=== PATIENT | female | born 1945 | race Caucasian/White ===

== ENCOUNTER 2017-06-24 12:36 | Emergency (ER) | payer MEDICARE, OTHER ==
[~2017-06-24] VITALS: Ht 172.7 cm; Wt 76.4 kg
[2017-06-24] MEDS ORDERED: OMEP20CA3 (12:51)
[2017-06-24] MEDS ORDERED: AMLO2.5T (12:51)
[2017-06-24] MEDS ORDERED: ASPIRIN 81 MG CHEW TABLET PO ONE (13:45)
[2017-06-24 14:02] LABS: BASO % 0.5 % (0.0-1.0); EOS # 0.1 K/mm3 (0.0-0.50); EOS % 2.1 % (0.0-3.0); LARGE UNSTAINED CELL # 0.2 K/mm3 (0.0-0.4); LARGE UNSTAINED CELL % 5.2 % (0.0-4.0); LYMPH # 1.1 K/mm3 (1.5-4.5); LYMPH % 23.9 % (24.0-44.0); MEAN CORPUSCULAR HEMOGLOBIN 32.6 pg (27.0-33.0); MEAN CORPUSCULAR HGB CONC 34.7 g/dl (32.0-36.5); MEAN CORPUSCULAR VOLUME 93.8 fl (80.0-96.0); MONO # 0.5 K/mm3 (0.0-0.8); MONO % 12.8 % (0.0-5.0); NEUTROPHILS # 2.1 K/mm3 (1.8-7.7); NEUTROPHILS % 55.5 % (36.0-66.0); PLATELET COUNT, AUTOMATED 212 k/mm3 (150-450); RED CELL DISTRIBUTION WIDTH 12.4 % (11.5-14.5); WHITE BLOOD COUNT 3.7 K/mm3 (4.0-10.0)
[2017-06-24 14:04] LABS: INR 0.92
[2017-06-24 14:29] LABS: ALBUMIN 3.4 GM/DL (3.2-5.2); ALBUMIN/GLOBULIN RATIO 0.94 (1.00-1.93); ALKALINE PHOSPHATASE 89 U/L (45-117); ALT/SGPT 33 U/L (12-78); ANION GAP 7 MEQ/L (8-16); AST/SGOT 19 U/L (15-37); BILIRUBIN,DIRECT 0.2 MG/DL (0.0-0.2); BILIRUBIN,TOTAL 0.7 MG/DL (0.2-1.0); BLOOD UREA NITROGEN 11 MG/DL (7-18); CALCIUM LEVEL 9.3 MG/DL (8.8-10.2); CARBON DIOXIDE LEVEL 30 MEQ/L (21-32); CHLORIDE LEVEL 105 MEQ/L (98-107); CREATININE FOR GFR 0.64 MG/DL (0.55-1.02); GLOMERULAR FILTRATION RATE > 60.0 (>39); GLUCOSE, FASTING 91 MG/DL (83-110); POTASSIUM SERUM 3.9 MEQ/L (3.5-5.1); SODIUM LEVEL 142 MEQ/L (136-145)
--- NOTE | 2017-06-24 15:03 | REP ---
PORTABLE CHEST: AP portable view of the chest is performed. There is no acute infiltrate. The heart is normal in size and the mediastinal silhouette is unremarkable. IMPRESSION: No acute infiltrate. Signed by Rd Coon MD 06/25/2017 05:52 P
[2017-06-24] MEDS ORDERED: MORPHINE 2 MG/ML 1ML SYRINGE IV ONE (15:15)
[2017-06-24] MEDS ORDERED: NS 1,000 ML IV SCH (15:30)
[2017-06-24] MEDS ORDERED: AMLO2.5T PO (16:12)
[2017-06-24] MEDS ORDERED: VITA10002 PO (16:12)
[2017-06-24] MEDS ORDERED: CALC600T31 PO (16:12)
[2017-06-24] MEDS ORDERED: OMEP20CA3 PO (16:12)
[2017-06-24] MEDS ORDERED: IBUPROFEN 600 MG TAB PO ONE (16:15)
[2017-06-24] MEDS ORDERED: ELIQ5TAB PO ×2 (16:19→16:49)
[2017-06-24] MEDS ORDERED: APIXABAN 5 MG TAB (ELIQUIS) PO ONE (16:30)
[2017-06-24 17:06] VITALS: BP 145/73
--- NOTE | 2017-06-25 11:17 | ECGEPIP ---
Stationary ECG Study [facility] - ED Test Date: 2017-06-24 Pat Name: MIGUEL MIX Department: Room: - Gender: F [employer] Supervisor: alfred : 1945 Requested By: Anderson Sidhu Order Number: [id number] Reading MD: Char Hernandez Measurements Intervals [place] Rate: 58 P: 74 CA: 197 QRS: 16 QRSD: 89 T: 29 QT: 396 QTc: 391 Interpretive Statements SINUS BRADYCARDIA WITH OCCASIONAL SUPRAVENTRICULAR PREMATURE COMPLEXES MODERATE VOLTAGE CRITERIA FOR LVH, CONSIDER NORMAL VARIANT NO PRIOR FOR COMPARISON Electronically Signed On 06-25-2017 11:17:44 EDT by Char Hernandez
== END 2017-06-24 17:05 | disposition home or self-care (01) ==
LOC: M ED 12:36
DX: R07.9 Chest pain, unspecified (principal); I10 Essential (primary) hypertension; K21.9 Gastro-esophageal reflux disease without esophagitis; Z79.899 Other long term (current) drug therapy

== ENCOUNTER → 2017-06-24 | Outpatient (REF) | payer MEDICARE, OTHER ==
[~2017-06-24] MED LIST: AMLO2.5T; AMLO2.5T PO; CALC600T31 PO; ELIQ5TAB PO; OMEP20CA3; OMEP20CA3 PO; VITA10002 PO
[2017-06-24 13:17] LABS: MYOGLOBIN 51 NG/ML (13-71)
== END ==
LOC: M LAB REF 12:47
PROVIDERS: ATTEND Nurse Practitioner Adult Health
DX: R07.9 Chest pain, unspecified (principal)

== ENCOUNTER 2017-07-17 11:28 | Day surgery (SDC) | payer MEDICARE, OTHER ==
[~2017-07-17] VITALS: Ht 171.4 cm; Wt 73.8 kg
[~2017-07-17 11:28] MED LIST changes: +ISOVUE-300 61% 50ML VIAL (Q9967) As Ordered ONE; +LIDOCAINE 1% SDV INJ 30 ML VIAL As Ordered ONE; +MUPIROCIN 2% OINT 22 GM TUBE As Ordered ONE; +VANCOMYCIN 1000 MG/20 ML VIAL (J3370) As Ordered ONE
[2017-07-17] MEDS ORDERED: LACTATED RINGER'S 1000 ML IV ONE (12:00)
[2017-07-17] MEDS ORDERED: ceFAZolin SOD 1 GM in D5W MINI-BAG PLUS 50 ML IV ONE (12:00)
[2017-07-17] MEDS ORDERED: LR 1,000 ML IV ONE (12:00)
[2017-07-17] MEDS ORDERED: fentaNYL 100 MCG/2 ML INJECTION (J3010) As Ordered ONE (13:18)
[2017-07-17] MEDS ORDERED: MIDAZOLAM INJ 2 MG/2 ML VIAL (J2250) As Ordered ONE (13:18)
[2017-07-17] MEDS ORDERED: LIDOCAINE 2% INJ 100 MG/5 ML SDV (FOR ANES.) As Ordered ONE (13:18)
[2017-07-17] MEDS ORDERED: PROPOFOL 200 MG/20 ML VIAL As Ordered ONE (13:18)
[2017-07-17] MEDS ORDERED: ePHEDrine SULFATE 25 MG/5 ML(5MG/ML) SYRINGE As Ordered ONE (13:28)
[2017-07-17] MEDS ORDERED: ONDANSETRON 4MG/2ML VIAL (J2405) As Ordered ONE (14:15)
--- NOTE | 2017-07-17 14:49 | REP ---
C-ARM VIEW CHEST: A C-arm view of the chest is performed during pacemaker insertion. Atrial and ventricular leads appear to be in good position. 4 minutes 52 seconds fluoroscopy time utilized. Signed by Rd Coon MD 07/17/2017 04:47 P
[2017-07-17] MEDS ORDERED: ONDANSETRON 4MG/2ML VIAL (J2405) IV PRN (15:15)
[2017-07-17] MEDS ORDERED: fentaNYL 100 MCG/2 ML INJECTION (J3010) IV PRN (15:15)
[2017-07-17] MEDS ORDERED: LR 1,000 ML IV SCH (15:15)
--- NOTE | 2017-07-17 15:26 | RO ---
DATE OF PROCEDURE: 07/17/2017 PREPROCEDURE DIAGNOSES: Sick sinus syndrome/tachycardia, bradycardia syndrome. POSTPROCEDURE DIAGNOSES: Sick sinus syndrome/tachycardia, bradycardia syndrome. FINDINGS: Sick sinus syndrome/tachycardia, bradycardia syndrome. PROCEDURE PERFORMED: Implantation of a Medtronic dual chamber pacemaker system. SURGEON: Asher Hammer MD PURIFYING PLANT OPERATOR: None. ANESTHESIA: Lidocaine 1% local/monitored anesthetic care. SPECIMENS: None. ESTIMATED BLOOD LOSS: Less than 10 mL. No blood products replaced. No drains. No complications. DESCRIPTION OF PROCEDURE: The patient was prepped and draped over the left pectoral region. 3M Ioban film was applied. Lidocaine 1% was used for local anesthetic. A left subclavian venogram was performed times two, each time using a total volume of 15 mL and consisting of a solution consisting of three parts contrast to one part normal saline. This was used in real time to help localize the extrathoracic portion of the left subclavian vein under fluoroscopic guidance with access via a micropuncture needle. This was then guidewire exchanged for a guidewire that came with one of the 7-Swazi sheaths. Next, an incision was made with a PEAK PlasmaBlade approximately 2-1/2 inches in length and about 1 cm below the entry site of the guidewire. The PEAK PlasmaBlade was then used to get through the fatty layer and the fibrous Rhonda' s fascia. A pacemaker pocket was then performed by the preperitoneal fascia from the Rhonda's fascia using blunt dissection using two fingers to form the pocket in a caudal direction. Next, the guidewire was pulled through the skin into the incision site. Next, another micropuncture needle was used to obtain a separate venous access more lateral to the first guidewire at the level of the pectoral muscle. This was then guidewire exchanged for a guidewire that came with the other 7-Swazi sheath. Next, a 7-Swazi sheath was placed over the more lateral of the guidewires and the sheath was used for vein access for the right ventricle lead, which was placed under fluoroscopic guidance into the right ventricle apex position where it was secured with a total of 10 turns. This position was found to be electrically and anatomically satisfactory. The sheath was broken apart and the ventricular lead was then secured using the supplied tie-down sleeve using two individual sutures consisting of #0 Ethibond to secure to the pectoral muscle. Next, the other 7-Swazi sheath was placed over the more lateral of the guidewires and was used for vein access for the atrial lead. The atrial lead was placed under fluoroscopic guidance into the right atrial appendage position with the help of the preformed J-Stylet. It was secured with a total of 10 turns. This position was found to electrically and anatomically satisfactory after removal of the J-stylet. The sheath was then broken apart and removed. The atrial lead was then secured to the pectoral muscle using three individual sutures consisting of #0 Ethibond to secure to the pectoral muscle via the supplied tie-down sleeve. Another #0 Ethibond suture was placed in the pectoral muscle to serve as a tie down for the pacemaker pulse generator. The terminal pins of both leads was then inserted into their respective ports in the header of the pacemaker pulse generator and each one was secured by tightening the set screws using the hex screwdriver. The excess lead material was coiled below the pacemaker pulse generator and placed along with the pacemaker pulse generator into the pacemaker pocket with the pulse generator on top and the excess lead material below. The pacemaker pulse generator was then secured to the pectoral muscle with the previously placed #0 Ethibond to secure it to the pectoral muscle. The deep layer was closed using individual sutures consisting of #2-0 Vicryl. A few additional #2-0 Vicryl sutures were used to help approximate the more superficial layer. Next, the skin was closed using a continuous suture consisting of #4-0 Biosyn with the free ends leaving at the skin about 1 cm beyond the incision on both sides. Benzoin was applied to the skin above and below the incision, and then a layer of Steri-Strips was applied perpendicular to the incision line. The free ends of the #0 Ethibond suture were then tied together to form a loop. Next, Telfa and Bioclusive dressing was applied, followed by a light pressure dressing. The pacemaker pulse generator implanted was a [employer] Advisa DR-MRI SureScan model number A2DR01 with serial number [id number]. The right atrial lead implanted was a Medtronic model number 4076-45 cm with serial number [id number]. Testing in the operating room for the right atrial lead and bipolar configuration showed capture threshold of 0.3 volts at 0.5 ms with lead impedance of 538 ohms and P amplitude of 1.5 millivolts at a rate of 0.6 volts per second. The right ventricle lead implanted was a [employer] Instrumentstronic model number 4076-52 cm with serial number [id number]. Final testing in the operating room for the right ventricle lead in bipolar configuration showed capture threshold of 0.4 volts at 0.5 ms with lead impedance of 948 ohms and R wave amplitude of 10.0 millivolts and SLE rate of greater than 4.0 volts per second. Copy to ILSA MohrD
[2017-07-17 16:00] VITALS: BP 140/80
--- NOTE | 2017-07-17 16:05 | REP ---
Portable chest, single AP view, the patient sitting, post pacemaker, 03:07 p.m.: Comparison is 06/24/2017. There is a dual-chamber pacemaker entering from the left as an interval change. There is no pneumothorax or pleural fluid collection. Lung petit are clear. Cardiac size is normal for positioning. The cruz, mediastinum, and bony thorax are unremarkable. Impression: Negative portable chest. No pneumothorax. Signed by Rd Jni MD 07/17/2017 03:56 P
[2017-07-17] MEDS: ACETAMINOPHEN TAB 650MG DOSE (2X325MG) PO PRN ×2 (16:22→20:47)
[2017-07-17] MEDS ORDERED: SLF 3 ML SYR IV PRN (16:45)
[2017-07-17 17:30] VITALS: BP 139/81
[2017-07-17 18:30] VITALS: BP 149/82
[2017-07-17 19:29] VITALS: BP 142/73
[2017-07-17] MEDS: OMEPRAZOLE 20 MG CAP PO SCH (20:38)
[2017-07-17] MEDS: ASCORBIC ACID 250 MG TAB PO SCH (20:39)
[2017-07-17] MEDS: SLF 3 ML SYR IV SCH (20:40)
[2017-07-17 21:10] VITALS: BP 140/62
[2017-07-17 23:51] VITALS: BP 112/70
[2017-07-18 05:19] VITALS: BP 130/72
[2017-07-18] MEDS: SLF 3 ML SYR IV SCH (05:24)
[2017-07-18] MEDS: ACETAMINOPHEN TAB 650MG DOSE (2X325MG) PO PRN (05:34)
[2017-07-18 08:00] VITALS: BP 142/82
--- NOTE | 2017-07-18 09:12 | REP ---
Chest x-ray: Two views. History: Postop. Comparison study July 17, 2017. Findings: EKG monitoring electrodes overlie the chest. A bipolar pacemaker is seen in the right heart via the left side. The lungs are symmetrically aerated and clear. There is very slight blunting of the right lateral pleural angle, but both posterior pleural angles appear sharp. No definite effusion. The lungs are a little hyperinflated as before. Heart is not enlarged. No significant bony abnormality seen. Impression: Pacemaker in place. Slight blunting of the right lateral pleural angle. Otherwise no active disease. Signed by Patrick Young MD 07/18/2017 11:07 A
[2017-07-18 09:25] VITALS: BP 142/82
[2017-07-18] MEDS: OMEPRAZOLE 20 MG CAP PO SCH (09:25)
[2017-07-18] MEDS: ASCORBIC ACID 250 MG TAB PO SCH (09:25)
--- NOTE | 2017-07-18 12:03 | ECGEPIP ---
Stationary ECG Study [facility] Test Date: 2017-07-17 Pat Name: VENKATESH MIX Department: Room: - Gender: F Partnership Development Manager: KEVIN : 1945 Requested By: Asher Hammer Order Number: [id number] Reading MD: Gallito Nieves Measurements Intervals [place] Rate: 69 P: 104 NM: 243 QRS: 2 QRSD: 89 T: 31 QT: 391 QTc: 419 Interpretive Statements ELECTRONIC ATRIAL PACEMAKER ABNORMAL RHYTHM ECG ATRIAL PACING IS NEW SINCE 06/24/17 Electronically Signed On 07-18-2017 12:02:57 EDT by Gallito Nieves
== END 2017-07-18 12:25 | disposition home or self-care (01) ==
LOC: M SDC 11:28 → M PCU 15:56 → M SDC 07-18 12:25
PROVIDERS: ATTEND Internal Medicine Cardiovascular Disease
DX: I49.5 Sick sinus syndrome (principal); I48.0 Paroxysmal atrial fibrillation; I11.9 Hypertensive heart disease without heart failure; K21.9 Gastro-esophageal reflux disease without esophagitis; F41.9 Anxiety disorder, unspecified; R01.1 Cardiac murmur, unspecified; M12.9 Arthropathy, unspecified; Z79.899 Other long term (current) drug therapy; Z91.030 Bee allergy status
CPT/HCPCS: 33208; 71010; 71020; 76000; 93005; C1721; C1769; C1898; J0690; J2250; J2405; J3010; Q9967

== ENCOUNTER 2018-04-01 09:32 | Day surgery (SDC) | payer MEDICARE, OTHER ==
[2018-04-01] MEDS ORDERED: NS 1,000 ML IV (10:00)
[2018-04-01] MEDS ORDERED: PROPOFOL 200 MG/20 ML VIAL As Ordered ×2 (10:27)
[2018-04-01] MEDS ORDERED: LIDOCAINE 2% INJ 100 MG/5 ML SDV (FOR ANES.) As Ordered (10:27)
== END 2018-04-01 11:26 | disposition home or self-care (01) ==
LOC: M OPP 09:32
DX: R10.12 Left upper quadrant pain (principal); K57.30 Diverticulosis of large intestine without perforation or abscess without bleeding; K31.89 Other diseases of stomach and duodenum; I48.91 Unspecified atrial fibrillation; I10 Essential (primary) hypertension; Z95.0 Presence of cardiac pacemaker; I49.5 Sick sinus syndrome; K21.9 Gastro-esophageal reflux disease without esophagitis; M19.90 Unspecified osteoarthritis, unspecified site; Z78.0 Asymptomatic menopausal state; Z91.030 Bee allergy status; Z79.01 Long term (current) use of anticoagulants; Z79.899 Other long term (current) drug therapy; Z80.8 Family history of malignant neoplasm of other organs or systems
CPT/HCPCS: 45378

== ENCOUNTER → 2021-04-10 | Outpatient (CLI) | payer MEDICARE, OTHER ==
[~2021-04-10] MED LIST changes: -AMLO2.5T; -AMLO2.5T PO; +AMLO2.5T3; +AMLO2.5T3 PO; +BISO5TAB14; +CYAN100049 PO; -ISOVUE-300 61% 50ML VIAL (Q9967) As Ordered ONE; -LIDOCAINE 1% SDV INJ 30 ML VIAL As Ordered ONE; -MUPIROCIN 2% OINT 22 GM TUBE As Ordered ONE; +OMEP1CAP73; +OMEP1CAP73 PO; -OMEP20CA3; -OMEP20CA3 PO; -VANCOMYCIN 1000 MG/20 ML VIAL (J3370) As Ordered ONE; -VITA10002 PO
--- NOTE | 2021-04-10 14:42 | REPMRS ---
Patient History The patient states she has not had a clinical breast exam in over a year. Patient is postmenopausal. Family history of unknown cancer in brother. No breast complaints today Patient signed the MRS sheet 1st covid vaccine 01/05/21-left arm-Moderna 2nd covid vaccine 02/02/21-left arm Priors done @ [facility] Patient Identification Verified Pacemaker 4 years ago Digital Woman Screen Mammo: April 10, 2021 - Exam #: [id number] Bilateral CC and MLO view(s) were taken. Technologist: Mei Branch, Technologist Prior study comparison: December 29, 2019, bilateral digital mammo screening bilat, performed at [facility]. November 25, 2018, bilateral digital mammo screening bilat, performed at [facility]. FINDINGS: There are scattered fibroglandular densities. Screening. Digital screening (2D) mammography was performed bilaterally in the CC and MLO projections. Additionally, breast tomosynthesis (3D mammography) was performed bilaterally in the CC and MLO projections. Todays exam was compared to the prior exams. By history, the patient has no complaints of a palpable breast abnormality or other significant breast complaints. The breasts are unchanged in size and shape. There are no anthony-soft tissue densities or spiculated masses. There is no internal architectural distortion.Once again, stable benign appearing calcifications are seen. There are no suspicious anthony-calcific clusters. Skin thickening or nipple retraction is not present. IMPRESSION: BI-RADS Category 2- Benign Findings. There is no evidence of malignant alteration of the breasts. Followup examination recommended in one year. The Volpara volumetric breast density category is B, there are scattered areas of fibroglandular density. This mammogram was read with the assistance of [employer],an FDA approved computer aided detection system for mammography. The lifetime Tyrer-Cuzick score is 2.5 % Negative x-ray reports should not delay surgical consultation if a dominant or clinically suspicious mass is present. Not all breast cancers can be identified by mammography. Therefore, we recommend that you continue to perform regular breast self-examination and physical examination and then promptly contact your physician of any concerns or changes. Adenosis and dense breasts may obscure an underlying neoplasm. Assessment: BI-RADS/ACR category 2 mammogram. Benign Findings. Recommendation Routine screening mammogram of both breasts in 1 year. Electronically Signed By: Rafael Villalpando DO 04/10/21 1133
== END ==
LOC: M WHC 12:47
PROVIDERS: ATTEND Nurse Practitioner Adult Health
DX: Z12.31 Encounter for screening mammogram for malignant neoplasm of breast (principal); Z95.0 Presence of cardiac pacemaker; Z78.0 Asymptomatic menopausal state

== ENCOUNTER → 2021-12-12 | Outpatient (CLI) | payer MEDICARE, OTHER | LOC: M RAD 08:29 | PROVIDERS: ATTEND Internal Medicine Cardiovascular Disease | DX: E80.7 Disorder of bilirubin metabolism, unspecified (principal); N28.1 Cyst of kidney, acquired; K82.8 Other specified diseases of gallbladder ==

== ENCOUNTER → 2022-05-29 | Outpatient (CLI) | payer MEDICARE, OTHER | LOC: M WHC 09:35 | PROVIDERS: ATTEND Nurse Practitioner Adult Health | DX: Z12.31 Encounter for screening mammogram for malignant neoplasm of breast (principal); Z95.0 Presence of cardiac pacemaker; R92.1 Mammographic calcification found on diagnostic imaging of breast ==

== ENCOUNTER → 2023-06-05 | Outpatient (CLI) | payer MEDICARE, OTHER | LOC: M WHC 10:23 | PROVIDERS: ATTEND Nurse Practitioner Adult Health | DX: Z12.31 Encounter for screening mammogram for malignant neoplasm of breast (principal) ==

== ENCOUNTER → 2023-10-09 | Outpatient (CLI) | payer MEDICARE, OTHER ==
[~2023-10-09] MED LIST changes: +ISOVUE-370 76% 100ML VIAL As Ordered ONE
== END ==
LOC: M RAD 13:41
PROVIDERS: ATTEND Surgery
DX: D17.1 Benign lipomatous neoplasm of skin and subcutaneous tissue of trunk (principal); K57.30 Diverticulosis of large intestine without perforation or abscess without bleeding; I70.0 Atherosclerosis of aorta; I25.10 Atherosclerotic heart disease of native coronary artery without angina pectoris; M85.89 Other specified disorders of bone density and structure, multiple sites
CPT/HCPCS: 72193; Q9967

== ENCOUNTER → 2023-11-17 | Outpatient (CLI) | payer MEDICARE, OTHER ==
[~2023-11-17] MED LIST changes: -ISOVUE-370 76% 100ML VIAL As Ordered ONE; +LIDOCAINE 1% MDV 20ML VIAL As Ordered ONE
[2023-11-17 13:15] VITALS: TEMP 98.9
[2023-11-17 14:35] VITALS: BP 150/82; O2SAT 96
== END ==
LOC: M IRPRO 13:09
PROVIDERS: ATTEND Surgery
DX: D48.5 Neoplasm of uncertain behavior of skin (principal)

== ENCOUNTER → 2024-11-28 | Outpatient (CLI) | payer MEDICARE, OTHER ==
[~2024-11-28] MED LIST changes: -LIDOCAINE 1% MDV 20ML VIAL As Ordered ONE
== END ==
LOC: M WHC 10:53
PROVIDERS: ATTEND Nurse Practitioner Adult Health
DX: Z12.31 Encounter for screening mammogram for malignant neoplasm of breast (principal); R92.323 Mammographic fibroglandular density, bilateral breasts